=== PATIENT | female | born 1955 | race Caucasian/White ===

== ENCOUNTER → 2019-03-20 09:24 | Outpatient (CLI) | payer OTHER, SELFPAY ==
[2019-03-20 12:32] LABS: ALB/GLOB Ratio 1.1 RATIO (0.9-2.4); AST(SGOT) 16 U/L (15-37); Alanine Aminotransfer ALT/SGPT 28 U/L (13-56); Albumin, Serum 3.7 g/dL (3.2-5.0); Alkaline Phosphatase 103 U/L (45-117); Anion Gap 5 (5-15); BUN 9 mg/dL (7-18); BUN/Creat Ratio 12.3 RATIO (10-20); Calcium,Total 9.4 mg/dL (8.5-10.1); Chloride 111 mmol/L (98-107); Creatinine, Serum 0.73 mg/dL (0.55-1.02); EST Glomerular Filtration Rate 85 mL/min (>60); Est Glom Filt Rate - Afr Amer 103 mL/min (>60); Ferritin 105 ng/mL (8-252); Globulin 3.5 g/dL (2.2-4.2); Glucose 98 mg/dL (74-106); Potassium 4.2 mmol/L (3.5-5.1); Protein, Total 7.2 g/dL (6.4-8.2); Sodium Level 143 mmol/L (136-145)
[2019-03-21 13:57] LABS: Thyroid Peroxidase AB 18 IU/mL (0-34)
== END ==
PROVIDERS: PCP Nurse Practitioner Family; Referring Provider Dermatology Pediatric Dermatology; Visit Provider Dermatology Pediatric Dermatology
DX: L65.9 Nonscarring hair loss, unspecified (principal)
CPT/HCPCS: 36415; 80053; 82728; 83970; 86376

== ENCOUNTER → 2022-12-07 | Outpatient (CLI) | payer MEDICARE, OTHER, SELFPAY ==
--- NOTE | 2022-12-07 16:54 | CT_ITS ---
EXAM: CT MAXILLOFACIAL WITHOUT INTRAVENOUS CONTRAST CLINICAL INDICATION: SINUSITIS TECHNIQUE: Helically acquired images were obtained of the face without intravenous contrast. CTDIvol = ( 33.06 ) mGy, DLP = ( 809.06 ) mGycm This CT exam was performed using one or more of the following dose reduction techniques: automated exposure control, adjustment of the mA and/or kV according to patient size, and/or use of iterative reconstruction technique. COMPARISON: No relevant prior studies available. FINDINGS: BONES/JOINTS: Unremarkable. No displaced fracture. No discrete lytic or blastic abnormalities. SOFT TISSUES: Unremarkable. No focal subcutaneous swelling. No discrete fluid collections. ORBITS: Unremarkable. Both globes are unremarkable. Extraocular muscles are normal. Retrobulbar fat appears unremarkable. SINUSES: Near complete opacification of the right maxillary sinus with air-fluid level. MASTOID AIR CELLS: Unremarkable as visualized. Clear. DENTAL: No acute findings. No periodontal osseous erosion. OTHER FINDINGS: . CT/Sinus/Facial Bone IMPRESSION: Near complete opacification of the right maxillary sinus with air-fluid level. Electronically Signed: Leif Sherwood MD at 4:30 EDT ,
== END | disposition home or self-care (01) ==
LOC: CT 16:49
PROVIDERS: PCP Nurse Practitioner Family; Visit Provider Otolaryngology
DX: J32.8 Other chronic sinusitis (principal)
CPT/HCPCS: 70486

== ENCOUNTER → 2023-06-27 | Outpatient (CLI) | payer MEDICARE, OTHER, SELFPAY ==
[2023-06-27 09:31] LABS: Hematocrit 45.7 % (37-47); Hemoglobin 14.8 g/dL (12.0-15.0); Mean Corp Hgb Conc 32.4 g/dL (32-36); Mean Corpuscular Hgb 30.7 pg (27.0-32.0); Mean Corpuscular Volume 94.8 fL (81-99); Mean Platelet Vol. 10.6 fl (6.2-12.0); Platelet Count 318 K/mm3 (150-450); RBC Distribution Width SD 45.1 fl (35.1-43.9); Red Blood Count 4.82 M/mm3 (4.2-5.4); White Blood Count 4.9 K/mm3 (4.4-11.0)
[2023-06-27 09:58] LABS: Anion Gap 3 (5-15); BUN 12 mg/dL (7-18); BUN/Creat Ratio 15.3 RATIO (10-20); Calcium,Total 9.4 mg/dL (8.5-10.1); Chloride 108 mmol/L (98-107); Creatinine, Serum 0.78 mg/dL (0.55-1.02); EST Glomerular Filtration Rate 78 mL/min (>60); Est Glom Filt Rate - Afr Amer 94 mL/min (>60); Glucose 99 mg/dL (74-106); Potassium 4.1 mmol/L (3.5-5.1); Sodium Level 141 mmol/L (136-145)
== END | disposition home or self-care (01) ==
PROVIDERS: PCP Family Medicine; Referring Provider Otolaryngology; Visit Provider Otolaryngology
DX: Z01.812 Encounter for preprocedural laboratory examination (principal); Z01.810 Encounter for preprocedural cardiovascular examination
CPT/HCPCS: 36415; 80048; 85027; 93005

== ENCOUNTER → 2023-07-05 | Outpatient (CLI) | payer MEDICARE, OTHER, SELFPAY ==
--- NOTE | 2023-07-05 10:35 | NASAL_PTH ---
PATIENT: MOLLY ROMAN LOC: [facility] U#:[id number] AGE/SX: 68/F ROOM: RE07/05/[address]: Dr. Cassius Young MD : 1955 BED: DIS: 07/05/2023 SPEC #: [id number] RECD: 07/06/23 08:34 STATUS: JIMMIE JACKIE #: [id number] VALENCIA: 07/05/23 10:[address]: Cassius Young DEPT: SURGICAL PATHOLOGY RECD BY: Xi Mendoza ENTERED: 07/06/23 08:35 SP TYPE: NASAL SPEC OTHR DR: Dr. Terry Latham MD Tissues: A - Ethmoid sinus, NOS B - Ethmoid sinus, NOS Procedures: Decalcification bone/plaque Surgery Specimen Level IV HEADER OPERATION: Functional endoscopic sinus surgery and open septorhinoplasty PRE-OP DIAGNOSIS: Acquired deformity of nose, hypertrophy of nasal turbinates, nasal congestion, other chronic sinusitis TISSUE SUBMITTED: A- Right sinus contents, B- Left sinus contents MICROSCOPIC DIAGNOSIS A. Right sinus contents, curettings: Chronic sinusitis. Fragments of bone with no pathologic change. B. Left sinus contents, curettings : Chronic sinusitis. Fragments of bone with no pathologic change. / 07/12/2023 MICROSCOPIC DESCRIPTION Slides are reviewed. GROSS DESCRIPTION A. Received in fixative is one container labeled with the patient's name and designated Right sinus contents. The specimen consists of multiple irregular fragments of klein-white gritty tissue measuring in aggregate 2.0 x 1.0 x 0.2cm. The specimen is submitted in its entirety in one cassette after decalcification. B. Received in fixative is one container labeled with the patient's name and designated Left sinus contents. The specimen consists of multiple irregular fragments of klein-white gritty tissue measuring in aggregate 2.0 x 2.0 x 0.2. The specimen is submitted in its entirety in one cassette after decalcification. / 07/06/2023 TC:5 CPT:22189d9
== END | disposition home or self-care (01) ==
LOC: LABSPEC 15:25
PROVIDERS: PCP Family Medicine; Referring Provider Otolaryngology; Visit Provider Otolaryngology
DX: M95.0 Acquired deformity of nose (principal); J34.3 Hypertrophy of nasal turbinates; R09.81 Nasal congestion; J32.9 Chronic sinusitis, unspecified
CPT/HCPCS: 88305; 88311

== ENCOUNTER → 2023-11-30 | Outpatient (CLI) | payer MEDICARE, OTHER, SELFPAY | END | disposition home or self-care (01) | LOC: LABSPEC 15:18 | PROVIDERS: PCP Family Medicine; Referring Provider Otolaryngology; Visit Provider Otolaryngology | DX: J32.8 Other chronic sinusitis (principal) | CPT/HCPCS: 87070; 87077; 87205 ==